=== PATIENT | female | born 1995 | race Caucasian/White ===

== ENCOUNTER 2020-04-15 09:19 | Emergency (ER) | payer MEDICAID ==
[2020-04-15] MEDS ORDERED: Ondansetron 4 MG/2 ML SDV IVPUSH ONE (09:58)
[2020-04-15] MEDS ORDERED: Sodium Chloride 0.9% 10 ML Syringe FLUSH PRN ×3 (09:58→12:09)
[2020-04-15] MEDS ORDERED: Sodium Chloride 0.9% 1,000 ML IV STA (09:58)
[2020-04-15] MEDS ORDERED: Famotidine 20 MG/2 ML SDV IVPUSH ONE (09:59)
[2020-04-15] MEDS ORDERED: HYDROmorphone 1 MG/ML Syringe IVPUSH ONE (09:59)
--- NOTE | 2020-04-15 10:04 | EDM.PDOC ---
ED HPI GENERAL MEDICAL PROBLEM - General Chief Complaint: Abdominal Pain Stated Complaint: ABDOMINAL PAIN Time Seen by Provider: 04/15/20 09:46 Source of Information: Reports: Patient History Limitations: Reports: No Limitations - History of Present Illness INITIAL COMMENTS - FREE TEXT/NARRATIVE: The patient presents with upper abdominal pain and nausea. This started about 8 hours ago. It woke her up at 2am. She has nausea but no vomiting. She has no fever, chills, cough, congestion, runny nose or shortness of breath. She does have some pain radiate up to her chest. She has no diarrhea or dysuria. She has no gallbladder but she does have an appendix. Onset: Gradual Duration: Hour(s): (8) Location: Reports: Abdomen Quality: Reports: Sharp Severity: Moderate Improves with: Reports: None Worsens with: Reports: None Associated Symptoms: Reports: Chest Pain, Nausea/Vomiting. Denies: Cough, Fever/Chills, Headaches, Shortness of Breath Bilateral Abdomen Pain Score (Numeric/FACES): 9 - Related Data Allergies Allergy/AdvReac Type Severity Reaction Status Date / Time No Known Allergies Allergy Verified 04/15/20 09:48 Home Meds: Home Meds Hydrocodone/Acetaminophen [Hydrocodone-Acetamin 5-325 mg] 1 - 2 each PO Q6HR PRN #10 tablet 04/15/20 [Rx] Ondansetron [Zofran ODT] 4 mg PO Q6H PRN #20 tab.dis 04/15/20 [Rx] Past Medical History - Past Surgical History GI Surgical History: Reports: Cholecystectomy Social & Family History - Family History Family Medical History: Noncontributory - Tobacco Use Tobacco Use Status *Q: Never Tobacco User - Caffeine Use Caffeine Use: Reports: None - Recreational Drug Use Recreational Drug Use: No ED ROS GENERAL - Review of Systems Review Of Systems: See Below Constitutional: Reports: No Symptoms HEENT: Reports: No Symptoms Respiratory: Reports: No Symptoms Cardiovascular: Reports: Chest Pain Endocrine: Reports: No Symptoms GI/Abdominal: Reports: Abdominal Pain, Nausea. Denies: Diarrhea, Vomiting : Reports: No Symptoms Musculoskeletal: Reports: No Symptoms ED EXAM, GI/ABD - Physical Exam Exam: See Below Exam Limited By: No Limitations General Appearance: Alert, No Apparent Distress Ears: Normal External Exam Nose: Normal Inspection Head: Atraumatic, Normocephalic Neck: Normal Inspection Respiratory/Chest: No Respiratory Distress, Lungs Clear, Normal Breath Sounds Cardiovascular: Regular Rate, Rhythm, No Edema, No Murmur GI/Abdominal Exam: Soft, No Organomegaly, No Mass, Tender (Mild to moderate tenderness to the upper abdomen) Course - Vital Signs Last Recorded V/S: Last Vital Signs Temp 97.0 F 04/15/20 09:45 Pulse 76 04/15/20 09:45 Resp 19 04/15/20 09:45 BP 124/66 04/15/20 09:45 Pulse Ox 97 04/15/20 09:45 - Orders/Labs/Meds Orders: Active Orders 24 hr Category Date Time Status Peripheral IV Care [RC] . DIRECTED Care 04/15/20 09:59 Active Abdomen Pelvis w Cont [CT] Stat Exams 04/15/20 09:58 Taken Abdomen wo Cont [MR] Stat Exams 04/15/20 13:20 Taken Sodium Chloride 0.9% [Saline Flush] Med 04/15/20 09:58 Active 10 ml FLUSH ASDIRECTED PRN Sodium Chloride 0.9% [Saline Flush] Med 04/15/20 12:09 Active 10 ml FLUSH ONETIME PRN ED Antiemetic Medication Reflex [OM.PC] Stat Oth 04/15/20 09:58 Ordered Peripheral IV Insertion Adult [OM.PC] Stat Oth 04/15/20 09:58 Ordered Medication Orders Sodium Chloride (Saline Flush) 10 ml FLUSH ASDIRECTED PRN PRN Reason: Keep Vein Open Last Admin: 04/15/20 10:31 Dose: 10 ml Documented by: ABDIFATAH Sodium Chloride (Saline Flush) 10 ml FLUSH ONETIME PRN PRN Reason: IV FLUSH Last Admin: 04/15/20 12:16 Dose: 10 ml Documented by: JD Labs: Laboratory Tests 04/15/20 04/15/20 04/15/20 Range/Units 10:15 10:20 10:20 WBC 13.03 H (3.98-10.04) K/mm3 RBC 4.53 (3.98-5.22) M/mm3 Hgb 13.8 (11.2-15.7) gm/dl Hct 43.0 (34.1-44.9) % MCV 94.9 H (79.4-94.8) fl MCH 30.5 (25.6-32.2) pg MCHC 32.1 L (32.2-35.5) g/dl RDW Std Deviation 44.2 (36.4-46.3) fL Plt Count 375 H (182-369) K/mm3 MPV 8.7 L (9.4-12.3) fl Neut % (Auto) 73.4 H (34.0-71.1) % Lymph % (Auto) 17.7 L (19.3-51.7) % Stevens % (Auto) 7.1 (4.7-12.5) % Eos % (Auto) 1.0 (0.7-5.8) Baso % (Auto) 0.6 (0.1-1.2) % Neut # (Auto) 9.56 H (1.56-6.13) K/mm3 Lymph # (Auto) 2.31 (1.18-3.74) K/mm3 Stevens # (Auto) 0.92 H (0.24-0.36) K/mm3 Eos # (Auto) 0.13 (0.04-0.36) K/mm3 Baso # (Auto) 0.08 (0.01-0.08) K/mm3 Manual Slide Review Normal smear Sodium 139 (136-145) mEq/L Potassium 3.5 (3.5-5.1) mEq/L Chloride 103 (98-107) mEq/L Carbon Dioxide 25 (21-32) mEq/L Anion Gap 14.5 (5-15) BUN 6 L (7-18) mg/dL Creatinine 0.7 (0.55-1.02) mg/dL Est Cr Clr Drug Dosing 105.17 mL/min Estimated GFR (MDRD) > 60 (>60) mL/min BUN/Creatinine Ratio 8.6 L (14-18) Glucose 91 (74-106) mg/dL Calcium 9.3 (8.5-10.1) mg/dL Total Bilirubin 0.6 (0.2-1.0) mg/dL AST 90 H (15-37) U/L ALT 98 H (14-59) U/L Alkaline Phosphatase 124 H (46-116) U/L Total Protein 7.5 (6.4-8.2) g/dl Albumin 3.8 (3.4-5.0) g/dl Globulin 3.7 gm/dL Albumin/Globulin Ratio 1.0 (1-2) Lipase 68 L (73-393) U/L HCG, Qual (NEGATIVE) Urine Color Yellow (Yellow) Urine Appearance Clear (Clear) Urine pH 7.5 (5.0-8.0) Ur Specific [place] 1.020 (1.005-1.030) Urine Protein Negative (Negative) Urine Glucose (UA) Negative (Negative) Urine Ketones Negative (Negative) Urine Occult Blood Negative (Negative) Urine Nitrite Negative (Negative) Urine Bilirubin Negative (Negative) Urine Urobilinogen 1.0 (0.2-1.0) Ur Leukocyte Esterase Negative (Negative) Urine RBC 0-5 (0-5) /hpf Urine WBC 0-5 (0-5) /hpf Ur Squamous Epith Cells 0-5 (0-5) /hpf Urine Bacteria Moderate H (FEW) /hpf Urine Mucus Few (FEW) /hpf 10/26/20 Range/Units 10:20 WBC (3.98-10.04) K/mm3 RBC (3.98-5.22) M/mm3 Hgb (11.2-15.7) gm/dl Hct (34.1-44.9) % MCV (79.4-94.8) fl MCH (25.6-32.2) pg MCHC (32.2-35.5) g/dl RDW Std Deviation (36.4-46.3) fL Plt Count (182-369) K/mm3 MPV (9.4-12.3) fl Neut % (Auto) (34.0-71.1) % Lymph % (Auto) (19.3-51.7) % Stevens % (Auto) (4.7-12.5) % Eos % (Auto) (0.7-5.8) Baso % (Auto) (0.1-1.2) % Neut # (Auto) (1.56-6.13) K/mm3 Lymph # (Auto) (1.18-3.74) K/mm3 Stevens # (Auto) (0.24-0.36) K/mm3 Eos # (Auto) (0.04-0.36) K/mm3 Baso # (Auto) (0.01-0.08) K/mm3 Manual Slide Review Sodium (136-145) mEq/L Potassium (3.5-5.1) mEq/L Chloride (98-107) mEq/L Carbon Dioxide (21-32) mEq/L Anion Gap (5-15) BUN (7-18) mg/dL Creatinine (0.55-1.02) mg/dL Est Cr Clr Drug Dosing mL/min Estimated GFR (MDRD) (>60) mL/min BUN/Creatinine Ratio (14-18) Glucose (74-106) mg/dL Calcium (8.5-10.1) mg/dL Total Bilirubin (0.2-1.0) mg/dL AST (15-37) U/L ALT (14-59) U/L Alkaline Phosphatase (46-116) U/L Total Protein (6.4-8.2) g/dl Albumin (3.4-5.0) g/dl Globulin gm/dL Albumin/Globulin Ratio (1-2) Lipase (73-393) U/L HCG, Qual Negative (NEGATIVE) Urine Color (Yellow) Urine Appearance (Clear) Urine pH (5.0-8.0) Ur Specific [place] (1.005-1.030) Urine Protein (Negative) Urine Glucose (UA) (Negative) Urine Ketones (Negative) Urine Occult Blood (Negative) Urine Nitrite (Negative) Urine Bilirubin (Negative) Urine Urobilinogen (0.2-1.0) Ur Leukocyte Esterase (Negative) Urine RBC (0-5) /hpf Urine WBC (0-5) /hpf Ur Squamous Epith Cells (0-5) /hpf Urine Bacteria (FEW) /hpf Urine Mucus (FEW) /hpf Meds: Medications Generic Name Dose Route Start Last Admin Trade Name Freq PRN Reason Stop Dose Admin Sodium Chloride 10 ml 04/15/20 09:58 04/15/20 10:31 Saline Flush FLUSH 10 ml ASDIRECTED PRN Administration Keep Vein Open Sodium Chloride 10 ml 04/15/20 12:09 04/15/20 12:16 Saline Flush FLUSH 10 ml ONETIME PRN Administration IV FLUSH Discontinued Medications Generic Name Dose Route Start Last Admin Trade Name Freq PRN Reason Stop Dose Admin Al Hydroxide/Mg Hydroxide 30 0 ml 04/15/20 16:35 ml/ Lidocaine HCl 15 ml PO 04/15/20 16:36 ONETIME ONE Diatrizoate Meglum/Diatrizoate Sod 120 ml 04/15/20 10:34 04/15/20 12:16 Gastrografin 37% PO 04/15/20 10:35 90 ml ONETIME ONE Administration Diatrizoate Meglum/Diatrizoate Sod 120 ml 04/15/20 12:09 Gastrografin 37% PO 04/15/20 12:10 ONETIME ONE Famotidine 20 mg 04/15/20 09:59 04/15/20 10:30 Pepcid IVPUSH 04/15/20 10:00 20 mg ONETIME ONE Administration Hydromorphone HCl 1 mg 04/15/20 09:59 04/15/20 10:28 Dilaudid IVPUSH 04/15/20 10:00 1 mg ONETIME ONE Administration Hydromorphone HCl 0.5 mg 04/15/20 12:30 04/15/20 12:52 Dilaudid IVPUSH 04/15/20 12:31 0.5 mg ONETIME ONE Administration Sodium Chloride 1,000 mls @ 1,000 mls/hr 04/15/20 09:58 04/15/20 10:31 Normal Saline IV 04/15/20 10:57 1,000 mls/hr .BOLUS STA Administration Iopamidol 100 ml 04/15/20 10:34 04/15/20 12:15 Isovue-300 (61%) IVPUSH 04/15/20 10:35 100 ml ONETIME ONE Administration Iopamidol 50 ml 04/15/20 12:09 04/15/20 12:15 Isovue-300 (61%) IVPUSH 04/15/20 12:10 50 ml ONETIME ONE Administration Iopamidol 100 ml 04/15/20 12:09 Isovue-300 (61%) IVPUSH 04/15/20 12:10 ONETIME ONE Ondansetron HCl 4 mg 04/15/20 09:58 04/15/20 10:27 Zofran IVPUSH 04/15/20 09:59 4 mg ONETIME ONE Administration Sodium Chloride 10 ml 04/15/20 10:34 Saline Flush FLUSH ONETIME PRN IV FLUSH - Re-Assessments/Exams Free Text/Narrative Re-Assessment/Exam: 04/15/20 10:03 I ordered an IV NS 1L bolus, zofran 4mg IV, dialudid 1mg IV, pepcid 20mg IV, labs, UA and a CT of her abdomen and pelvis with IV and oral contrast. 04/15/20 12:34 Her WBC is elevated at 13.03. Her AST is elevated at 90. Her ALT is elevated at 98. Her alk phos is elevated at 124. Her lipase is normal. Her HCG is negative. Her UA shows no UTI. She has more pain so I ordered dilaudid 0.5mg IV. I am waiting on the CT results. 04/15/20 16:[address] shows status post cholecystectomy with mildly prominent caliber of the common bile duct, often seen after cholecystectomy, but with mild intrahepatic biliary ductal dilatation, which is somewhat atypical. There also appears to be a mural based filling defect along the descending duodenum at the level of the ampulla. Correlate as to possible biliary obstruction and suggest dedicated evaluation, such as MRI/MRCP. Question wall thickening of the nondistended large bowel from the distal ascending through the sigmoid colon. Correlate as to any potential non-specific colitis. Small hiatal hernia. 3.1cm right adnexal cyst. Small fat containing umbilical hernia. I ordered an MRI and it showed mild intrahepatic biliary ectasia secondary to cholecystectomy, mild-moderate narrowing of the junction of the left hepatic duct with the common hepatic duct, no sign of mass. The extrahepatic biliary tree appears normal. No findings suspicious for obstruction. Incidental left renal cyst. It appears she does not have a biliary obstruction. I feel this is from the colitis. I called Dr Craig and she agreed. She did recommend a GI cocktail before she leaves and she can see her in clinic. The patient is not from here. I will discharge her home. Departure - Departure Time of Disposition: 17:00 Disposition: Home, Self-Care 01 Condition: Good Clinical Impression: Colitis Abdominal pain Qualifiers: Abdominal location: upper abdomen, unspecified Qualified Code(s): R10.10 - Upper abdominal pain, unspecified - Discharge Information *PRESCRIPTION DRUG MONITORING PROGRAM REVIEWED*: Not Applicable *COPY OF PRESCRIPTION DRUG MONITORING REPORT IN PATIENT DELMAR: Not Applicable Prescriptions: Hydrocodone/Acetaminophen [Hydrocodone-Acetamin 5-325 mg] 1 - 2 each PO Q6HR PRN #10 tablet PRN Reason: Pain Ondansetron [Zofran ODT] 4 mg PO Q6H PRN #20 tab.dis PRN Reason: Nausea\vomiting Referrals: PCP,None [Primary Care Provider] - Forms: ED Department Discharge Additional Instructions: Drink plenty of fluids and advance your diet as tolerated. Take zofran every 6 hours as needed for nausea and vomiting. Take tylenol or motrin for pain. If that does not help, try the hydrocodone. Follow up with your doctor when you get home. Please return if you are worse. Sepsis Event Note (ED) - Evaluation Sepsis Screening Result: No Definite Risk - Focused Exam Vital Signs: Vital Signs Temp Pulse Resp BP Pulse Ox 04/15/20 09:45 97.0 F 76 19 124/66 97 - My Orders Last 24 Hours: My Active Orders 04/15/20 09:58 Abdomen Pelvis w Cont [CT] Stat Sodium Chloride 0.9% [Saline Flush] 10 ml FLUSH ASDIRECTED PRN ED Antiemetic Medication Reflex [OM.PC] Stat Peripheral IV Insertion Adult [OM.PC] Stat 04/15/20 09:59 Peripheral IV Care [RC] . DIRECTED 04/15/20 12:09 Sodium Chloride 0.9% [Saline Flush] 10 ml FLUSH ONETIME PRN 04/15/20 13:20 Abdomen wo Cont [MR] Stat - Assessment/Plan Last 24 Hours: My Active Orders 04/15/20 09:58 Abdomen Pelvis w Cont [CT] Stat Sodium Chloride 0.9% [Saline Flush] 10 ml FLUSH ASDIRECTED PRN ED Antiemetic Medication Reflex [OM.PC] Stat Peripheral IV Insertion Adult [OM.PC] Stat 04/15/20 09:59 Peripheral IV Care [RC] . DIRECTED 04/15/20 12:09 Sodium Chloride 0.9% [Saline Flush] 10 ml FLUSH ONETIME PRN 04/15/20 13:20 Abdomen wo Cont [MR] Stat
[2020-04-15] MEDS ORDERED: Iopamidol 612 MG/ML 100 ML Bottle IVPUSH ONE ×2 (10:34→12:09)
[2020-04-15] MEDS ORDERED: Diatrizoate Meglumine/Diatrizoate Sodium 37% 120 ML Bottle PO ONE ×2 (10:34→12:09)
[2020-04-15] MEDS ORDERED: Iopamidol 612 MG/ML 50 ML SDV IVPUSH ONE (12:09)
[2020-04-15] MEDS ORDERED: HYDROmorphone 0.5 MG/0.5 ML Syringe IVPUSH ONE (12:30)
[2020-04-15] MEDS ORDERED: Alum Hydrox/Mag Hydrox/Simeth 30 ML, Lidocaine 2% 15 ML PO ONE ×2 (16:35)
--- NOTE | 2020-04-18 13:58 | CT ---
"PROCEDURE INFORMATION: Exam: CT Abdomen And Pelvis With Contrast Exam date and time: 04/15/2020 12:01 PM Age: 25 years old Clinical indication: Abdominal pain; Patient HX: Epigastric pain TECHNIQUE: Imaging protocol: Computed tomography of the abdomen and pelvis with intravenous contrast. Radiation optimization: All CT scans at this facility use at least one of these dose optimization techniques: automated exposure control; mA and/or kV adjustment per patient size (includes targeted exams where dose is matched to clinical indication); or iterative reconstruction. Contrast material: ISOVUE 300; Contrast volume: 125 ml; Contrast route: INTRAVENOUS (IV); COMPARISON: No relevant prior studies available. FINDINGS: Lungs: The visualized lung bases demonstrate minor dependent atelectasis. Mediastinal space: There is a small hiatal hernia. Liver: The liver demonstrates mild intrahepatic biliary ductal dilatation. It appears otherwise unremarkable. Gallbladder and bile ducts: Cholecystectomy clips are present. The common bile duct is mildly prominent in caliber, often seen after cholecystectomy. Pancreas: Normal. No ductal dilation. Spleen: Normal. No splenomegaly. Adrenal glands: Normal. No mass. Kidneys and ureters: The right kidney appears unremarkable. The left kidney contains a 10 mm cyst, which is benign and does not require follow-up. It appears otherwise unremarkable. Stomach and bowel: There appears to be a mural based filling defect along the medial wall of the descending duodenum at the level of the ampulla of Vater measuring approximately 8 x 9 x 12 mm. The small bowel is not significantly distended to suggest obstruction, but contrast has not yet reached the large bowel. The large bowel is not distended, but question wall thickening from the distal ascending through the sigmoid colon. RUPERT MARIEE | Final Radiology Report CONFIDENTIALITY STATEMENT This report is intended only for use by the referring physician, and only in accordance with law. If you received this in error, call [phone]. Page 2 of 2 Appendix: The appendix appears normal. Intraperitoneal space: No free air or significant free fluid. Vasculature: Unremarkable. No abdominal aortic aneurysm. Lymph nodes: There are some subcentimeter short axis retroperitoneal lymph nodes, without pathologic lymphadenopathy identified. Urinary bladder: Unremarkable as visualized. Reproductive: There is a 3.1 cm right adnexal cyst. Bones/joints: Unremarkable. No acute fracture. Soft tissues: A small fat containing umbilical hernia is noted. IMPRESSION: 1. Status post cholecystectomy with mildly prominent caliber of the common bile duct, often seen after cholecystectomy, but with mild intrahepatic biliary ductal dilatation, which is somewhat atypical. There also appears to be a mural based filling defect along the descending duodenum at the level of the ampulla. Correlate as to possible biliary obstruction and suggest dedicated evaluation, such as MRI/MRCP. 2. Question wall thickening of the nondistended large bowel from the distal ascending through the sigmoid colon. Correlate as to any potential non-specific colitis. 3. Small hiatal hernia. 4. 3.1 cm right adnexal cyst. 5. Small fat containing umbilical hernia. Thank you for allowing us to participate in the care of your patient. Dictated and Authenticated by: Nicho Tapia MD 04/15/2020 1:37 PM Central Time ([place] & [place]) [facility]"
--- NOTE | 2020-04-18 14:09 | MR ---
"PROCEDURE INFORMATION: Exam: MR Abdomen Without Contrast Exam date and time: 04/15/2020 3:11 PM Age: 25 years old Clinical indication: Abdominal pain; Prior surgery; Surgery date: 6+ months; Surgery type: Cholecystectomy; Patient HX: Possible biliary tree obstruction; Additional info: Mrcp TECHNIQUE: Imaging protocol: MR of the abdomen without contrast. 3D rendering (Not supervised by radiologist): MIP and/or 3D reconstructed images were created by the technologist. COMPARISON: CT Abdomen Pelvis w Cont 04/15/2020 12:01 PM FINDINGS: Pleural space: There are minimal posterior pleural effusions. Liver: The liver is normal aside from minimal post cholecystectomy biliary ectasia. There is a sub 5 mm small cyst or hamartoma Gallbladder and bile ducts: The extrahepatic biliary tree has normal course, caliber and morphology. There is mild dilatation of the intrahepatic biliary tree, the origin of the left hepatic duct from the common hepatic duct is mild-moderately narrowed. There is no sign of a focal mass. There are no intraluminal filling defects or extra luminal mass effect. The patient is post cholecystectomy. Pancreas: The pancreas is normal. Spleen: The spleen is normal. Adrenals: The adrenal glands are normal. Kidneys and ureters: A 10 mm simple cyst lies in the left kidney. The kidneys are morphologically normal. There are no signs of calculi or hydronephrosis. Stomach and bowel: There are no signs of a papillary projection into the duodenum, this region is better demonstrated on the preceding CT.The visualized portion of the GI tract is unremarkable. Intraperitoneal space: There is no evidence of free intraperitoneal or pelvic fluid. Arteries: No abdominal aortic aneurysm. Veins: The abdominal aorta, IVC, and their branches are unremarkable. RUPERT MARIEE | Final Radiology Report CONFIDENTIALITY STATEMENT This report is intended only for use by the referring physician, and only in accordance with law. If you received this in error, call [phone]. Page 2 of 2 Lymph nodes: There is no evidence of lymphadenopathy. Bones/joints: Lumbar vertebral morphology and alignment is normal. Soft tissues: Unremarkable. IMPRESSION: 1. Mild intrahepatic biliary ectasia secondary to cholecystectomy, mild-moderate narrowing of the junction of the left hepatic duct with the common hepatic duct, no sign of mass. 2. The extrahepatic biliary tree appears normal. No findings suspicious for obstruction. 3. Incidental left renal cyst. Thank you for allowing us to participate in the care of your patient. Dictated and Authenticated by: Gaurav Parry MD 04/15/2020 5:12 PM Central Time ([place] & [place]) [facility]"
== END 2020-04-15 17:20 | disposition home or self-care (01) ==
LOC: JD.ED 09:19
DX: K52.9 Noninfective gastroenteritis and colitis, unspecified (principal); R74.01 Elevation of levels of liver transaminase levels; R79.89 Other specified abnormal findings of blood chemistry; Z90.49 Acquired absence of other specified parts of digestive tract
CPT/HCPCS: 36415; 74177; 74181; 80053; 81001; 83690; 84703; 85025; 96374; 96375; 96376; 99284; A9270; J1170; J2405; J3490; J7030; Q9963; Q9967